=== PATIENT | female | born 1940 | race Caucasian/White ===

== ENCOUNTER → 2018-06-11 | Outpatient (CLI) | payer MEDICARE, BC ==
[~2018-06-11] MED LIST: ASPI325EC PO; ASPI81CH PO; Amaryl2 MG PO; CEPH500 PO; GLIM2 PO; LISI5 PO; Lisinopril2.5 MG PO; METF500 PO; OXYACE5T PO; SIMV40 PO; Zofran Odt4 MG SL
[2018-06-11 11:01] LABS: Source, Urine Clean Catch
[2018-06-11 12:59] LABS: Bilirubin, Urine Neg (Neg); Blood, Urine 1+ (Neg); Glucose Qualitative, Urine Neg (Neg); Ketones, Urine Neg (Neg); Leukocyte Esterase, Urine 3+ (Neg); Nitrite, Urine Neg (Neg); Protein, Urine Neg (Neg); Specific Gravity, Urine 1.005 (1.003-1.022); Urobilinogen, Urine NORM (Normal)
[2018-06-11 13:38] LABS: Appearance, Urine Clear (Clear); Color, Urine Yellow (P-Yellow)
[2018-06-11 13:39] LABS: Bacteria Mod /hpf; Squamous Epithelial Cells Few /hpf (Few); White Blood Cells, Urine TNTC /hpf (0-5)
== END | disposition home or self-care (01) ==
LOC: LAB 10:58 → LAB SHORT 10:58 → LAB FUT 06-10 14:05 → EDSTATUS 06-10 14:05
PROVIDERS: Urology
DX: N39.0 Urinary tract infection, site not specified (principal)
CPT/HCPCS: 81001; 87077; 87086; 87186

== ENCOUNTER → 2018-07-09 | Outpatient (CLI) | payer MEDICARE, BC ==
[2018-07-09 10:42] LABS: Source, Urine Clean Catch
[2018-07-09 11:44] LABS: Appearance, Urine Hazy (Clear); Bilirubin, Urine Neg (Neg); Blood, Urine 2+ (Neg); Color, Urine Yellow (P-Yellow); Glucose Qualitative, Urine Neg (Neg); Ketones, Urine Neg (Neg); Leukocyte Esterase, Urine 3+ (Neg); Nitrite, Urine Neg (Neg); Protein, Urine Neg (Neg); Specific Gravity, Urine 1.015 (1.003-1.022); Urobilinogen, Urine NORM (Normal)
[2018-07-09 12:07] LABS: White Blood Cells, Urine 50-100 /hpf (0-5)
[2018-07-09 12:08] LABS: Bacteria Mod /hpf; Squamous Epithelial Cells Few /hpf (Few)
== END | disposition home or self-care (01) ==
LOC: LAB 10:30 → LAB SHORT 10:30 → LAB FUT 07-08 15:25 → EDSTATUS 07-08 15:25
PROVIDERS: Urology
DX: N39.0 Urinary tract infection, site not specified (principal)
CPT/HCPCS: 81001; 87077; 87086; 87186

== ENCOUNTER → 2018-07-21 | Outpatient (CLI) | payer MEDICARE, BC | END | disposition home or self-care (01) | LOC: LAB SHORT 15:05 → LAB 15:05 → LAB FUT 07-21 14:25 → EDSTATUS 07-21 14:25 | DX: N39.0 Urinary tract infection, site not specified (principal) | CPT/HCPCS: 87086 ==

== ENCOUNTER → 2018-12-13 | Outpatient (CLI) | payer MEDICARE, BC ==
[2018-12-20 11:06] LABS: BRUSHITE 0.47 ratio (0.00-3.00); CALCIUM OXALATE 3.18 ratio (0.00-6.00); CALCIUM, URINE 111.6 mg/24 hr (100.0-300.0); CALCIUM, URINE 6.2 mg/dL (Not Estab.); CHLORIDE URINE 157 (110-250); CITRIC ACID (CITRATE) 158 mg/L (Not Estab.); CITRIC ACID(CITRATE) 284 mg/24 hr (320-1240); CREATININE, URINE 50.3 mg/dL (Not Estab.); CREATININE, URINE 905.4 mg/24 hr (800.0-1800.0); MAGNESIUM, URINE 3.2 mg/dL (Not Estab.); MONOSODIUM URATE 2.05 ratio (0.00-4.00); OSMOLALITY, URINE 394 (300-900); SODIUM, URINE 160 (39-258); SODIUM, URINE 89 mmol/L (Not Estab.); STRUVITE 0.01 ratio (0.00-1.00); URIC ACID 0.91 ratio (0.00-1.20); URINE VOLUME 1800 mL/24 hr (600-1600); URINE VOLUME (PRESERVATIVE) 1800 mL/24 hr (600-1600)
== END | disposition home or self-care (01) ==
LOC: LAB SHORT 07:00 → LAB 07:00 → LAB FUT 11-11 12:40
PROVIDERS: Urology
DX: N20.0 Calculus of kidney (principal)
CPT/HCPCS: 81003; 81050; 82131; 82140; 82340; 82436; 82507; 82570; 83735; 83935; 83945; 84105; 84133; 84300; 84392; 84560

== ENCOUNTER → 2019-04-26 | Outpatient (CLI) | payer MEDICARE, BC ==
[2019-05-03 11:07] LABS: BRUSHITE 0.53 ratio (0.00-3.00); CALCIUM OXALATE 2.17 ratio (0.00-6.00); CALCIUM, URINE 145.6 mg/24 hr (100.0-300.0); CALCIUM, URINE 5.2 mg/dL (Not Estab.); CHLORIDE URINE 241 (110-250); CITRIC ACID (CITRATE) 202 mg/L (Not Estab.); CITRIC ACID(CITRATE) 566 mg/24 hr (320-1240); CREATININE, URINE 1394.4 mg/24 hr (800.0-1800.0); CREATININE, URINE 49.8 mg/dL (Not Estab.); MAGNESIUM, URINE 2.6 mg/dL (Not Estab.); MONOSODIUM URATE 2.29 ratio (0.00-4.00); OSMOLALITY, URINE 396 (300-900); SODIUM, URINE 100 mmol/L (Not Estab.); SODIUM, URINE 280 (39-258); STRUVITE 0.01 ratio (0.00-1.00); URIC ACID 0.57 ratio (0.00-1.20); URINE VOLUME 2800 mL/24 hr (600-1600); URINE VOLUME (PRESERVATIVE) 2800 mL/24 hr (600-1600)
== END | disposition home or self-care (01) ==
LOC: LAB 07:15 → LAB SHORT 07:15 → EDSTATUS 04-20 16:25 → LAB FUT 04-20 16:25
PROVIDERS: Urology
DX: N20.0 Calculus of kidney (principal)
CPT/HCPCS: 81003; 82131; 82140; 82340; 82436; 82507; 82570; 83735; 83935; 83945; 84105; 84133; 84300; 84392; 84560

== ENCOUNTER 2019-06-24 11:28 | Day surgery (SDC) | payer MEDICARE, BC ==
[~2019-06-24] VITALS: Ht 162.6 cm; Wt 72.2 kg
[~2019-06-24 11:28] MED LIST changes: +Aspirin EC81 MG PO; +Metformin HCl1000 MG PO; +PROBIOTIC1 EAC1 PO; +[UNRECOGNIZED DRUG - OTHER]
== END 2019-06-24 13:38 | disposition home or self-care (01) ==
LOC: ORSCSDS 11:28
PROVIDERS: Internal Medicine Gastroenterology
PROC: 0DB58ZX Excision of Esophagus, Via Natural or Artificial Opening Endoscopic, Diagnostic (ICD-10-PCS; principal; 2019-06-24 13:00)
PROC: 0DB98ZX Excision of Duodenum, Via Natural or Artificial Opening Endoscopic, Diagnostic (ICD-10-PCS; principal; 2019-06-24 13:00)
PROC: 0D757ZZ Dilation of Esophagus, Via Natural or Artificial Opening (ICD-10-PCS; principal; 2019-06-24 13:00)
DX: K21.9 Gastro-esophageal reflux disease without esophagitis (principal); R13.14 Dysphagia, pharyngoesophageal phase; K29.80 Duodenitis without bleeding; K22.2 Esophageal obstruction; K44.9 Diaphragmatic hernia without obstruction or gangrene; E11.9 Type 2 diabetes mellitus without complications; Z79.82 Long term (current) use of aspirin; Z79.84 Long term (current) use of oral hypoglycemic drugs
CPT/HCPCS: 82947; 88305; J2704; J7120

== ENCOUNTER 2020-11-30 09:02 | Day surgery (SDC) | payer MEDICARE, BC ==
[~2020-11-30] VITALS: Ht 165.1 cm; Wt 67.5 kg
== END 2020-11-30 11:35 | disposition home or self-care (01) ==
LOC: ORSCSDS 09:02
PROVIDERS: Internal Medicine Gastroenterology
PROC: 0DJD8ZZ Inspection of Lower Intestinal Tract, Via Natural or Artificial Opening Endoscopic (ICD-10-PCS; principal; 2020-11-30 10:30)
DX: Z12.11 Encounter for screening for malignant neoplasm of colon (principal); E11.9 Type 2 diabetes mellitus without complications; K57.30 Diverticulosis of large intestine without perforation or abscess without bleeding; Z79.82 Long term (current) use of aspirin; Z79.84 Long term (current) use of oral hypoglycemic drugs; Z79.899 Other long term (current) drug therapy
CPT/HCPCS: 82947; J2704; J7120

== ENCOUNTER → 2021-07-25 | Outpatient (CLI) | payer MEDICARE, BC | END | disposition home or self-care (01) | LOC: LAB 13:16 → LAB SHORT 13:16 | DX: L03.116 Cellulitis of left lower limb (principal) | CPT/HCPCS: 87070; 87205 ==

== ENCOUNTER → 2022-11-03 | Outpatient (CLI) | payer MEDICARE, BC ==
[2022-11-03 14:05] LABS: BASOPHILS ABSOLUTE AUTO 0.02 K/mm3 (0.00-0.23); BASOPHILS PERCENT AUTO 1 % (0-2); EOSINOPHILS ABSOLUTE AUTO 0.07 K/mm3 (0.00-0.68); EOSINOPHILS PERCENT AUTO 2 % (0-6); Hematocrit 35.6 % (33.0-51.0); Hemoglobin 12.2 g/dL (11.5-16.0); IMMATURE GRAN ABSOLUTE AUTO 0.02 K/mm3 (0.00-0.10); IMMATURE GRAN PERCENT AUTO 1 % (0-1); LYMPHOCYTES PERCENT AUTO 32 % (21-46); MONOCYTES ABSOLUTE AUTO 0.34 K/mm3 (0.16-1.47); MONOCYTES PERCENT AUTO 8 % (4-13); Mean Corpuscular HGB 31.4 pg (26.0-34.0); Mean Corpuscular HGB Conc 34.3 g/dL (31.5-36.5); Mean Corpuscular Volume 92 fL (80-100); Mean Platelet Volume 10.4 fL (9.1-12.4); NEUTROPHILS ABSOLUTE AUTO 2.31 K/mm3 (1.96-9.15); NEUTROPHILS PERCENT AUTO 57 % (41-73); Platelet Count 182 K/mm3 (150-400); RDW Coefficient Variation 13.3 % (11.7-14.2); RDW Standard Deviation 44.5 fL (35.1-46.3); Red Blood Cell Count 3.89 M/mm3 (3.80-5.20); White Blood Cell Count 4.06 K/mm3 (4.00-11.30)
[2022-11-03 20:24] LABS: Alanine Aminotransfer (ALT/SGP 24 U/L (12-78); Albumin, Blood 3.6 g/dL (3.4-5.0); Albumin/Globulin Ratio 0.6 (0.8-1.8); Alk Phos 37 U/L (50-136); Anion Gap 4 mmol/L (6-16); Aspartate Aminotrans (AST/SGOT 22 U/L (12-37); Bilirubin, Total 0.4 mg/dL (0.1-1.0); Blood Urea Nitrogen 23 mg/dL (8-24); CHOL/HDL RATIO 2.9; CO2, Blood 26 mmol/L (21-32); Calcium, Blood 9.7 mg/dL (8.5-10.1); Chloride, Blood 108 mmol/L (98-108); Cholesterol 134 mg/dL (50-200); Globulin, Blood 6.1 g/dL (2.2-4.0); Glomerular Filtration Rate 57 (60-); Glucose, Blood 119 mg/dL (70-99); HDL Cholesterol 47 mg/dL (>39); LDL/HDL RATIO 1.1; Low Density Lipoprotein Chol 53 mg/dL (0-110); Potassium, Blood 4.5 mmol/L (3.5-5.5); Sodium, Blood 138 mmol/L (136-145); Total Protein, Blood 9.7 g/dL (6.4-8.2); Triglycerides 170 mg/dL (30-160); Very Low Density Lipoprot Chol 34 mg/dL (6-32)
== END | disposition home or self-care (01) ==
LOC: LAB 09:46 → LAB SHORT 09:46 → LAB FUT 10-23 17:55 → EDSTATUS 10-23 17:55
PROVIDERS: Family Medicine
DX: E11.9 Type 2 diabetes mellitus without complications (principal); I10 Essential (primary) hypertension; E78.2 Mixed hyperlipidemia
CPT/HCPCS: 80053; 80061; 83036; 85025